=== PATIENT | male | born 1985 | race Caucasian/White ===

== ENCOUNTER 2018-08-26 01:03 | Emergency (ER) | payer OTHER ==
[2018-08-26] MEDS: IPRATROPIUM 0.5MG/ALBUTEROL 2.5MG INH SOL UD 3ML (DUONEB)(J7620) NEB (01:31)
[2018-08-26] MEDS: BENZONATATE 100 MG CAP PO (01:50)
[2018-08-26] MEDS: ALBUTEROL 90 MCG/ACT 8GM HFA INHALER INH (01:52)
== END 2018-08-26 02:03 | disposition home or self-care (01) ==
LOC: M ED 01:03
DX: J06.9 Acute upper respiratory infection, unspecified (principal); J45.909 Unspecified asthma, uncomplicated
CPT/HCPCS: 94640